=== PATIENT | female | born 1975 | race Caucasian/White ===

== ENCOUNTER 2022-05-23 07:46 | Observation (INO) ==
--- NOTE | 2022-05-13 09:26 | Anesthesiology Consultation ---
Date of Service May 13, 2022 Assessment & Plan (1) Encounter for pre-operative examination: - COVID screening: Per assessment on 05/13: No known COVID-19 positive contacts or current COVID-19 related symptoms. Travel screen negative. Patient vaccinated. At surgeon discretion if preop Covid testing being done. - Check CBC with diff AM DOS (recent chemo) - Check test AM DOS Chart Review Chart Review: Acceptable Risk for Surgery and Patient NOT seen in Pre Admission Testing History Surgery Operation Date: 05/23/22 07:15 Proposed Procedures p Bilateral Mastectomy and Right Sided Axillary [place] Lymph Node Biopsy and Mary Systems Integration Manager Localized Lymph Node Biopsy - Myron Mccann MD Height/Weight Height: 5 ft 5 in Weight: 95.254 kg Allergies Allergy/AdvReac Type Severity Reaction Status Date / Time Cephalosporins Allergy Intermediate HIVES Verified 05/13/22 08:31 Sulfa (Sulfonamide Allergy Intermediate HIVES Unverified 05/13/22 08:31 Antibiotics) Medications Home Medications Medication Instructions Recorded Confirmed Last Taken Medical Marijuana 1 dose PO UD PRN Nausea 05/13/22 05/13/22 Unknown cetirizine 10 mg tablet (Zyrtec) 10 mg PO QPM 05/13/22 05/13/22 Unknown lactobacillus comb no.10 20 20,000 mmu cells PO QAM 05/13/22 05/13/22 Unknown billion cell capsule (Probiotic) magnesium glycinate 100 mg tablet 100 mg PO QAM 05/13/22 05/13/22 Unknown multivitamin 1 tab PO QAM 05/13/22 05/13/22 Unknown ondansetron HCl 8 mg tablet 8 mg PO Q12H PRN Nausea 05/13/22 05/13/22 Unknown sertraline 25 mg tablet 25 mg PO HS 05/13/22 05/13/22 Unknown vitamin B complex 1 tab PO QAM 05/13/22 05/13/22 Unknown zinc 25 mg tablet 25 mg PO QAM 05/13/22 05/13/22 Unknown Past Medical History Medical History Anxiety and depression Breast cancer Started chemo 12/21/2021, [facility] Hx of migraines None since starting chemo Port-A-Cath in place Seasonal allergies Past Family History Family History Other No family history of adverse response to anesthesia Past Surgical History Surgical History History of mandibular surgery FOR OVERBITE Hx of section x2 Hx of wisdom tooth extraction Nausea and vomiting after administration of anesthetic agent Social History Smoking Status: Never smoker Do You Dip or Chew Tobacco: No Hx Alcohol Use: No Hx Substance Use: Yes substance use type: marijuana (medical marijuana, typically edibles PRN (RN advised protocol)) Testing Laboratory Results 05/02/22 WBC 8.92 H/H 12.4/36.0 PLATELETS 193 SODIUM 142 POTASSIUM 3.8 CHLORIDE 103 CO2 29 BUN 13 CREATININE 0.8 GLUCOSE 76 Echocardiogram Date: 03/24/22 LVEF 60-64%. No RWMA. No significant valvular disease.
[~2022-05-23 07:46] MED LIST: CLINDA 900 MG **Premixed Bag IV SCH; ENOXAPARIN INJ 30 MG/0.3 ML SYR SQ SCH; LR 15ML/HR IV SCH
[2022-05-23 09:03] LABS: Basophils # (auto) 0.03 K/uL (0-0.2); Basophils % (auto) 0.3 %; Eosinophils # (auto) 0.76 K/uL (0-0.50); Eosinophils % (auto) 8.4 %; Hematocrit (blood only) 37.3 % (37.0-47.0); Hemoglobin 13.1 g/dl (12.0-16.0); Immature Granulocytes # (auto) 0.04 K/uL (0.01-0.20); Immature Granulocytes % (auto) 0.4 %; Lymphocytes # (auto) 2.08 K/uL (1.2-3.4); Lymphocytes % (auto) 22.9 %; Mean Corpuscular Hgb Conc 35.1 g/dL (32.0-36.0); Mean Corpuscular Volume 91.2 fL (80.0-100.0); Mean Platelet Volume 9.8 fL (9.4-12.4); Monocytes # (auto) 0.78 K/uL (0.11-0.59); Monocytes % (auto) 8.6 %; Neutrophils # (auto) 5.41 K/uL (1.40-6.50); Neutrophils % (auto) 59.4 %; Platelet Count 241 K/uL (130-400); RDW Coefficient of Variation 14.5 % (11.5-14.5); RDW Standard Deviation 48.5 fL (36.4-46.3); Red Blood Count 4.09 M/uL (4.20-5.40)
--- NOTE | 2022-05-23 09:30 | History & Physical Bridge Note ---
Date of Service May 23, 2022 History & Physical Bridge Note I have examined the patient, reviewed the History & Physical and in the interval since the performance of the History & Physical I have noted the following changes of clinical significance: no changes noted
[2022-05-23] MEDS ORDERED: SCOPOLAMINE 1 MG TDSY TD ONE ×2 (09:50→09:53)
[2022-05-23] MEDS ORDERED: ePHEDrine sulfate 50 MG/ML AMP IV PRN (09:53)
[2022-05-23] MEDS ORDERED: ONDANSETRON INJ 2 MG/ML 2 ML VIAL IV PRN ×2 (09:53→15:56)
[2022-05-23] MEDS ORDERED: ATROPINE SULFATE 0.1 MG/ML 10ML SYR IV PRN (09:53)
[2022-05-23] MEDS ORDERED: MIDAZOLAM HCL 1 MG/ML 2ML VIAL ONE (09:54)
[2022-05-23] MEDS ORDERED: fentaNYL citrate PF 100 MCG/2 ML VIAL ONE ×3 (09:54→12:06)
[2022-05-23] MEDS ORDERED: LIDOCAINE 2% MPF LOCAL 5 ML VIAL ONE (10:25)
[2022-05-23] MEDS ORDERED: PROPOFOL IV EMULSION 10 MG/ML 20 ML VIAL IV ONE (10:25)
[2022-05-23] MEDS ORDERED: ROCURONIUM BROMIDE 10 MG/ML 5 ML VIAL IV ONE ×5 (10:25→12:13)
[2022-05-23] MEDS ORDERED: DEXAMETHASONE SOD INJ 4 MG/ML VIAL ONE (10:25)
[2022-05-23] MEDS ORDERED: ONDANSETRON INJ 2 MG/ML 2 ML VIAL ONE ×2 (10:25→13:57)
[2022-05-23] MEDS ORDERED: SODIUM CHLORIDE 0.9% PF 50 ML VIAL ONE (10:26)
[2022-05-23] MEDS ORDERED: BUPIVACAINE LIPOSOME 1.3% 266 MG/20 ML VIAL INFIL ONE (12:07)
[2022-05-23] MEDS ORDERED: BUPIVACAINE/EPINEPHRINE 0.25% 1:200,000 30 ML VIAL INFIL ONE (12:08)
[2022-05-23] MEDS ORDERED: HYDROmorphone INJ 2 MG/ML SYR/VIAL ONE (13:00)
--- NOTE | 2022-05-23 13:49 | Post Operative Brief Note ---
Immediate Post Op Note v1 Date of Surgery May 23, 2022 Pre & Post Diagnosis Operation Date: 05/23/22 10:30 <No data on this case meets the specified criteria> I identified the patient and participated in the time-out.: Yes Procedure Operation Date: 05/23/22 10:30 <No data on this case meets the specified criteria> Surgeon Myron Mccann MD Power Hammer Operator LELEEE Diaz assisted with tissue retraction, camera op, closure Estimated Blood Loss 30 Findings Consistent with Post-Op Diagnosis Drains Ismael-Scott Drain (1 on the left and 2 on the right)
[2022-05-23] MEDS ORDERED: GLYCOPYRROLATE 0.2 MG/ML VIAL ONE (13:57)
[2022-05-23] MEDS ORDERED: NEOSTIGMINE METHYLSULFATE 1 MG/ML 10ML VIAL ONE (13:57)
--- NOTE | 2022-05-23 13:57 | Operative Report ---
Post Operative Report Pre & Post Diagnosis Operation Date: 05/23/22 10:30 <No data on this case meets the specified criteria> I identified the patient and participated in the time-out.: Yes Procedure Operation Date: 05/23/22 10:30 <No data on this case meets the specified criteria> Surgeon Myron Mccann MD Senior Qualitative Researcher LEELEE Diaz assisted with tissue retraction, camera op, closure Estimated Blood Loss 30 Findings Consistent with Post-Op Diagnosis Specimens Left breast mastectomy specimen Right breast mastectomy specimen Right breast sentinel lymph node x1, 1050 count Right breast sentinel lymph node x2, 230 count Right breast sentinel lymph node x3, 520 count Drains Left breast: 10 [place]er flat NICHOLAS drain Right breast: 10 [place]er flat NICHOLAS drain x2 Anesthesia Type General Complications No immediate complications Description of Procedure Patient was taken to the operating room, placed supine on the operating table. Timeout is performed, perioperative antibiotics were administered, SCD boots were placed. After adequate anesthesia and analgesia was obtained, the area was prepped and draped in the normal sterile fashion. Incision lines were drawn on the bilateral breast encompassing the nipple areolar complex. Other landmarks were marked as well. 5 cc of methylene blue dye was injected into the subcutaneous tissue around the right nipple. The sentinel node and Mary vocational auto body instructor were localized with the neoprobe and Mary vocational auto body instructor probe and were noted on the skin. A mix of Exparel and Marcaine was injected into the bilateral breast tissue. We began on the left side. The incision was made with 15 blade scalpel and carried into the level of subcutaneous tissue. Flaps were raised with the Bovie electrocautery. Using a traction countertraction technique, the breast tissue was detached from the overlying skin and subcutaneous tissue with the electrocautery. The extent of the dissection was the clavicle superiorly, the sternum medially, and the rectus sheath inferiorly. The dissection was carried out into the axillary tissue. The breast was then removed from the underlying pectoralis major muscle taking care to remove the fascia with it. This was done with electrocautery as well. Larger vessels were clamped and tied. The breast was marked with sutures and ink and was sent off field for specimen. Attention was turned to hemostasis, which was attended to and was excellent. The wound was copiously irrigated and suctioned free. A 10 [place]er flat NICHOLAS drain was placed through separate stab incision and was secured with a 2-0 silk suture. The subcutaneous tissue was closed with 3-0 Vicryl. The skin was closed with running 4-0 Monocryl subcuticular stitch. Dermabond was applied. We then turned our attention to the right side. The incision was made with 15 blade scalpel and carried into the level of subcutaneous tissue. Flaps were raised with the Bovie electrocautery. Using a traction countertraction technique, the breast tissue was detached from the overlying skin and subcutaneous tissue with the electrocautery. The extent of the dissection was the clavicle superiorly, the sternum medially, and the rectus sheath inferiorly. The dissection was carried out into the axillary tissue. At this point, the sentinel lymph node was dissected. Using the Mary vocational auto body instructor device, as well as the neoprobe, we were able to identify the sentinel lymph node. This was dissected free circumferentially and removed. The lymphatics were transected with the harmonic scalpel. The sentinel lymph node had a count of 1050, and contained the Mary vocational auto body instructor device. Further searching in the axilla yielded to further sentinel lymph nodes, counts of 520 and 130, respectively. The background radiation was 17. We continued the dissection of the breast. This is complete, the breast was then removed from the underlying pectoralis major muscle taking care to remove the fascia with it. This was done with electrocautery as well. Larger vessels were clamped and tied. The breast was marked with sutures and ink and was sent off field for specimen. Attention was turned to hemostasis, which was attended to and was excellent. The wound was copiously irrigated and suctioned free. Two 10 [place]er flat NICHOLAS drains were placed through separate stab incisions and were secured with a 2-0 silk suture. 2 drains were used due to the significant axillary dissection for the sentinel nodes, and slightly more oozing on this side. The subcutaneous tissue was closed with 3-0 Vicryl. The skin was closed with running 4-0 Monocryl subcuticular stitch. Dermabond was applied. My urology physician assistant was necessary throughout the procedure for tissue retraction, possible camera operation, and closure of the wounds. I understand that section 1842(b)(7)(D) of the Social Security act generally prohibits Medicare physician fee schedule payment for the services of assistants at surgery in teaching hospitals when qualified residents are available to furnish such services. I certify that the services for which payment is claimed were medically necessary and that no qualified resident was available to perform the services. I further understand that these services are subject to postpayment review by the Medicare carrier. I attest to the content of the Intraoperative Record and any orders documented therein. Any exceptions are noted below.
[2022-05-23] MEDS: fentaNYL citrate PF 100 MCG/2 ML VIAL IV PRN ×4 (14:39→14:54)
--- NOTE | 2022-05-23 15:02 | Anesthesiology Progress Note ---
Date of Service May 23, 2022 Anesthesia Post Procedure Vital Signs Vital Signs: Temp Pulse Resp BP Pulse Ox O2 Del Method O2 Flow Rate 05/23/22 14:55 92 H 19 125/84 96 Nasal Cannula 2 05/23/22 14:45 81 18 121/78 94 Nasal Cannula 2 05/23/22 14:35 88 18 128/83 94 Nasal Cannula 2 05/23/22 14:25 92 H 18 133/84 94 Oxymask 5 05/23/22 14:18 97.3 F L 104 H 18 120/90 94 Oxymask 5 05/23/22 08:59 98.2 F 84 18 105/86 96 Room Air Transfer of Care Handoff Completed per policy Notes Mental Status: alert / awake / arousable and participated in evaluation Patient Amnestic to Procedure: Yes Nausea / Vomiting: adequately controlled Pain: adequately controlled Airway Patency, RR, SpO2: stable & adequate BP & HR: stable & adequate Hydration State: stable & adequate Anesthetic Complications: no major complications apparent and Pt Satisfied with anesthetic care
[2022-05-23] MEDS ORDERED: MoRPHine SULFATE 2 MG/ML CARP IV PRN (15:56)
[2022-05-23] MEDS ORDERED: PROMETHAZINE HCL 12.5 MG in SODIUM CHLORIDE 0.9% 50 ML IV PRN (15:56)
[2022-05-23] MEDS ORDERED: diphenhydrAMINE Capsule 25 MG CAP PO PRN (15:56)
[2022-05-23] MEDS ORDERED: KETOROLAC 30 MG/ML VIAL IV PRN (15:56)
[2022-05-23] MEDS ORDERED: CHECK SCOPOLAMINE PATCH PLACEMENT SCH (16:00)
[2022-05-23] MEDS: oxyCODONE/ACETAMINOPHEN 5mg/325mg TAB PO PRN (16:55)
[2022-05-23] MEDS ORDERED: SODIUM CHLORIDE 0.9% 1000ML 1,000 ML IV SCH (18:30)
--- NOTE | 2022-05-24 07:02 | Surgery Progress Note ---
Date of Service May 24, 2022 Assessment & Plan (1) Breast cancer, right: Plan: POD#1 s/p bilateral mastectomy with right SLN biopsy. doing well OOB/ambulate aggressive pulm toilet DVT prophylaxis with SCDs/Lovenox/early ambulation advance diet as tolerated drain teaching for home d/c to home after lunch f/u in office with nurse on Monday Admission and Anticipated Discharge Date Admission Date: May 23, 2022 Subjective POD1 s/p bilateral mastectomy with right sentinel lymph node biopsy. doing well. tolerating diet. no n/v. pain controlled. Physical Exam Physical Exam: NAD A&Ox3 Dressings C/D/I; incisions with dermabond JPx3 with small serosanguinous drainage Results & Data Vital Signs (Past 12 Hours) Vital Signs Temp Pulse Resp BP Pulse Ox O2 Del Method O2 Flow Rate 05/24/22 04:09 36.9 C 82 16 118/75 96 Nasal Cannula 2 05/24/22 00:18 36.7 C 87 16 119/83 95 Room Air 2 05/23/22 19:32 36.6 C 93 H 16 118/83 93 Nasal Cannula 2 05/23/22 19:03 93 Room Air
[2022-05-24 07:13] LABS: Basophils # (auto) 0.02 K/uL (0-0.2); Basophils % (auto) 0.2 %; Eosinophils # (auto) 0.02 K/uL (0-0.50); Eosinophils % (auto) 0.2 %; Hematocrit (blood only) 32.5 % (37.0-47.0); Hemoglobin 11.6 g/dl (12.0-16.0); Immature Granulocytes # (auto) 0.09 K/uL (0.01-0.20); Immature Granulocytes % (auto) 0.7 %; Lymphocytes # (auto) 1.41 K/uL (1.2-3.4); Mean Corpuscular Hemoglobin 32.4 pg (25.0-34.0); Mean Corpuscular Hgb Conc 35.7 g/dL (32.0-36.0); Mean Corpuscular Volume 90.8 fL (80.0-100.0); Mean Platelet Volume 9.8 fL (9.4-12.4); Monocytes # (auto) 0.99 K/uL (0.11-0.59); Monocytes % (auto) 7.7 %; Neutrophils # (auto) 10.33 K/uL (1.40-6.50); Neutrophils % (auto) 80.2 %; Platelet Count 231 K/uL (130-400); RDW Coefficient of Variation 14.4 % (11.5-14.5); RDW Standard Deviation 48.1 fL (36.4-46.3); Red Blood Count 3.58 M/uL (4.20-5.40); White Blood Count 12.86 K/ul (4.8-10.8)
[2022-05-24] MEDS ORDERED: ENOXAPARIN INJ 40 MG/0.4 ML SYR SQ SCH (08:00)
[2022-05-24] MEDS: oxyCODONE/ACETAMINOPHEN 5mg/325mg TAB PO PRN (10:40)
--- NOTE | 2022-05-28 13:17 | Discharge Summary ---
Date of Service May 28, 2022 Principal Diagnosis Right breast cancer Discharge Data Allergies Allergy/AdvReac Type Severity Reaction Status Date / Time Cephalosporins Allergy Intermediate HIVES Verified 05/23/22 08:56 Sulfa (Sulfonamide Allergy Intermediate HIVES Verified 05/23/22 08:56 Antibiotics) Procedures Performed Operation Date: 05/23/22 10:30 Actual Procedures p Bilateral Mastectomy and Right Sided Axillary [place] Lymph Node Biopsy and Mary Squirt Machine Operator Localized Lymph Node Biopsy(Bilateral) - Myron Mccann MD Ordered Studies 05/23/22 05:00 US - OR guided needle placemen Routine Hospital Course (1) Breast cancer, right: Plan Patient was admitted from home and taken to the operating room for bilateral breast mastectomy with right sentinel lymph node biopsy. The details of this are dictated in a separate operative note. Postoperatively she was transferred in stable condition to the PACU and subsequently to the floor. DVT prophylaxis with with SCD boots and Lovenox. Aggressive pulmonary toilet was encouraged with early ambulation and incentive spirometry. Pain control was with IV and p.o. pain medication. Her diet was advanced as tolerated. She was taught how to empty and record her drain output by the nurses. By the date of discharge, she was tolerating a regular diet, not requiring any IV pain medications, and she was discharged home in stable condition. She will follow-up in clinic in 1 week. Total Time Total Time Spent Total Time Spent (In Minutes): 30 minutes Discharge Plan Discharge Items Patient Disposition: Home - Self-Care Reason For Visit: POSTOP MASTECTOMY, BILATERAL Discharge Diagnosis: right breast cancer; s/p bilateral mastectomy with right SLN biopsy Activity: Per Instructions section Lifting: No more than 10 pounds Sexual Activity: Wait until after follow-up appointment Exercise/Sports: Wait until after follow-up appointment Non-emergency contact: Surgeon Call non-emergency contact if: you have any medication questions, your symptoms worsen, your pain is not controlled, your pain is worsening, your pain is unusual for you, your temperature is above 101.5, your wound has increased redness, your wound has increased drainage and your wound pain has increased Follow-up/Referrals: Claudine Cuba MD [Primary Care Provider] - Diet: Regular Addtl Attending Provider Instructions: ACTIVITY RECOMMENDATIONS: * Walk as much as possible. * No heavy lifting (>10 lbs.) for 4 weeks. * Arm exercises (walk fingers up wall; small circles with shoulder) a few times/day SPECIAL CARE INSTRUCTIONS: * Keep drain sites dry. Sponge bathe around them. * Remove dressing this evening or tomorrow. * Empty and record drain output as directed. When drainage decreases below 20 mL per day for 2 days, call to have drain removed * wear provided bra for comfort * Leave dermabond in place. * Call the surgeon's office with any questions or concerns - (ex. temperature higher than 101 degrees F, excessive bleeding or pain). MEDICATIONS: Resume previous medications unless instructed otherwise by your surgeon. * Percocet 1 every 4 hours, as needed for pain FOLLOW UP VISIT: Call to schedule follow up visit with nurse (drain removal) for Monday05/30/22 If not already scheduled, please call the office to schedule a two week follow- up appointment. Office number Pending Studies at Discharge: No Stand-Alone Forms: My [facility], Smoking Cessation Medications and DC Order Prescriptions: New oxycodone-acetaminophen [Percocet] 5-325 mg tablet 1 tab PO Q6H PRN (Reason: pain) Qty: 10 0RF Continued multivitamin Tablet 1 tab PO QAM cetirizine [Zyrtec] 10 mg Tablet 10 mg PO QPM zinc 25 mg Tablet 25 mg PO QAM sertraline 25 mg Tablet 25 mg PO HS vitamin B complex Tablet 1 tab PO QAM magnesium glycinate 100 mg Tablet 100 mg PO QAM Probiotic 20 billion cell Capsule 20,000 mmu cells PO QAM Rx Instructions: administer with a meal ondansetron HCl 8 mg Tablet 8 mg PO Q12H PRN (Reason: Nausea) Medical Marijuana 1 dose PO UD PRN (Reason: Nausea) Discharge Orders: Discharge Order (Routine); Ordered 05/24/22 Ordered By: Myron Enriquez/Other Patient Handouts: Ismael Scott Drain Tube Dc, Post Op Drain Emptying Steps Admission Data Admit Date/Time: 05/23/22 14:01 Attending Provider: Myron Mccann Admit Provider: Myron Mccann Primary Care Provider: Claudine Cuba Other Interventions: Discharge Summary Assessment (RN) Last Done: 05/24/22 11:15
--- NOTE | 2022-06-01 09:58 | Coding Query ---
CODING QUERY To promote full compliance with coding requirements relating to patient care, provider participation is requested in all cases of vice president fixed income uncertainty. Please assist us with the question(s) below: Coding Question(s): Physician's Response(s): Please complete the Pre and Post diagnoses and the Procedure that was performed on the Operative Report. Thank you. done. Thanks. Thank you Daniela Serrano CCS Principal Diagnosis: "that condition established after study, to be chiefly responsible for occasioning the admission of the patient to the hospital for care." Co-Existing Principal Diagnosis: "when two or more diagnoses equally meet the criteria for principal diagnosis as determined by the circumstances of admission, diagnostic work up, and/or therapy provided, and the Alphabetic Index, Tabular List, or another coding guideline does not provide sequencing direction, any one of the diagnoses may be sequenced first." "When the physician has documented what appears to be a current diagnosis in the body of the record, but has not included the diagnosis in the final diagnostic statement, the physician should be asked whether the diagnosis should be added." (Source Coding Clinic 2 QTR90. p3-4) RENETTA
== END 2022-05-24 13:19 | disposition home or self-care (01) ==
LOC: ASU 07:46 → 3W 07:46